=== PATIENT | female | born 1980 | race Caucasian/White ===

== ENCOUNTER 2025-01-19 13:12 | Outpatient (CLI) | payer OTHER, SELFPAY ==
--- OUTSIDE RECORDS SUMMARY | 2022-12-20 04:41 | XMS_ITS | Continuity of Care Document ---
Author Organization [facility] Address [address] [place] [address] Phone Care Team Providers Care Curator [employer] Name Role Phone Kenisha Ramsey MD Unavailable [...] tablet - Active Procedures Procedure Date OFFICE [id number]-[id number]-WUPM-MED BODY MASS INDEX DOCD SYST BP LT 130 MM HG DIAST BP 80-89 MM HG Advance Directives Directive Yes / No Effective Date File Name No Information Encounters Encounter Description Practice Location Reason(s) For Visit Diagnoses Date Provider Providers Copied on Encounter [facility], [address], [place], [place], [address], [place] tel:[phone] [employer] [facility] No Information 3 [address] [place], [place], [id number] , [place]. tel:[phone] OFFICE [id number]-LAB P-MED [facility], [address], [place], [place], [address], [place] tel:[phone] [employer] [facility] New pt. get established visit (chief complaint)Ch ronic Conditions (chief complaint) Body mass index [BMI] 27.0-27.9, adultPersistent headachesOther fatigueUpper back pain on right sideAnxiety, generalizedNeck painChronic insomnia 3 [address] [place], [place], [address] , [place]. tel:[phone] Referring Provider: Kenisha Tierney, [address] [place], [address] . tel:[phone] Family History Family Member Type Diagnosis Age At Onset No Information Immunizations Vaccine Date Status Comments Moderna (Bivalent Booster) C OVID Vac, 50mgc/0.5 mL, 18+ years administered Source: Swapna rce Unspecified Payers Payer name Insurance type Covered constitution party ID Authoriza tion(s) AETNA PPO CI [id number] Social History Type Description Quantity Date Captured [...] side) ordered Referral Referred To: Physical Therapy [address] [place], [phone] Ordered: Referrals: Physical Therapy. Location: [facility] Physical THerapy - [place]. Evaluation/diagnostic/treatment - Level 3 ordered Future Order: Lab Order Ferritin ([id number]), Sent on: Sent Future Order: Lab Order Comprehe nsive Metabolic (CMP) ([id number]), Sent on: Sent Future Order: Lab Order CBC AUTO DIFF ([id number]), Sent on: Sent Future Order: Lab Order Vitamin B12 ([id number]), Sent on: Sent Future Order: Lab Order Iron/TIB C Panel ([id number]), Sent on: Sent Future Order: Lab Order Vitamin D, 25-Hydroxy ([id number]), Sent on: Sent History Of Present Illness Encounter Date Complaint History Of Prese nt Illness New pt. get established visit Pt . here to get established.Has been seeing a PCP at [facility] but feels her PCP is no longer [...] use of IbuprofenStart Physical therapy at [facility] Follow up in 8 weeks Related to Persistent headaches Take the sertraline 100mg once d aily Related to Anxiety, generalized Dietary management e ducation, guidance, and counseling Related to Body mass index (BMI) 27.0-27.9, adult Assessments Type Assessment Date No Information Patient Care Teams Name Effective Dates (start - stop) Status Members No Information
--- OUTSIDE RECORDS SUMMARY | 2023-10-26 16:30 | XMS_ITS ---
Author Organization [facility] [place] ([address]) Address [address] [place] [address] Care Team Providers Care Mining Helper Name Role Phone Lenin Luca Primary Care Provider Unavailab le HeatherLisbeth Unavailable [phone] ZZ-Migration, Provider Unavailable Unavailab le REAS[facility] FOR VISIT [facility] Encounter Medications Medication SIG (Take, Route, Frequency, Duration) Notes Start Date End Date Status Adderall XR 30 MG 1 cap(s) orally once a day (in the morning); Duration: 30 day(s) Active guaiFENesin 600 MG 1 TAB(S) ORALLY BID, PRN; Duration: 5 DAY(S) *Please review and pick correct strength-formulati on from [facility] options. If intended option is not shown, discontinue and re-order from Quick Search* Active Ativan 1 MG 1 tab(s) orally BID, prn; Duration: 0 Active Ventolin HFA 108 (90 Base) MCG/ACT 2 puff(s) inhaled QID, prn; Duration: 30 day(s) Active CeleXA 20 MG 1 tab(s) orally BID; Duration: 30 day(s) Active PATANASE NASAL SPRAY (W/REBATE) 665 MCG 2 SPRAYS INTRANASAL 2 TIMES A DAY, PRN; Duration: 30 DAYS *Please review for potential replacement for e-prescription and drug interaction check* 12/15/2012 Active Singulair 10 MG 1 tab(s) orally once a day (in the evening); Duration: 30 day(s) 12/15/2012 Active NASONEX 50 MCG/INH 2 SPRAY(S) INTRANASALLY ONCE A DAY; Duration: 30 DAY(S) *Please review for potential replacement for e-prescription and drug interaction check* 12/15/2012 Active traZODone HCl 50 MG 1 tab(s) orally QHS; Duration: 30 day(s) Active Fexofenadine HCl 180 MG 1 tab(s) orally QD-BID; Duration: 30 day(s) 12/15/2012 Active NASAL WASHES N/A DIRECTED INTRANASALLY NEEDED; Duration: 30 *Please review for potential replacement for e-prescription and drug interaction check* 12/15/2012 Active Flonase Allergy Relief 50 MCG/ACT 2 spray(s) intranasally once a day; Duration: 30 day(s) 01/05/2013 Active Encounters Encounter Location Date Provider Diagnosis LIZZETH Gibson [address] [place] [phone] 10/26/2023 Provider FabianaZ-Tobi Allergic rhinitis due to allergen 477.8 Assessments Encounter Date Diagnosis (ICD Code) Assessment Notes Treatment Notes Treatment Clinical Notes Section Notes 10/26/2023 Allergic rhinitis due to allergen (ICD9-CM - 477.8) Plan Of Treatment Medication Medication Name Sig Start Date Stop Date Notes PATANASE NASAL SPRAY (W/REBATE) 665 MCG 2 SPRAYS INTRANASAL 2 TIMES A DAY, PRN; Duration: 30 DAYS 12/15/2012 *Please review for potential replacement for e-prescription and drug interaction check* Singulair 10 MG 1 tab(s) orally once a day (in the evening); Duration: 30 day(s) 12/15/2012 NASONEX 50 MCG/INH 2 SPRAY(S) INTRANASALLY ONCE A DAY; Duration: 30 DAY(S) 12/15/2012 *Please review for potential replacement for e-prescription and drug interaction check* Fexofenadine HCl 180 MG 1 tab(s) orally QD-BID; Duration: 30 day(s) 12/15/2012 NASAL WASHES N/A DIRECTED INTRANASALLY NEEDED; Duration: 30 12/15/2012 *Please review for potential replacement for e-prescription and drug interaction check* Flonase Allergy Relief 50 MCG/ACT 2 spray(s) intranasally once a day; Duration: 30 day(s) 01/05/2013 Progress Notes * Suzanne THOMAS RDOB:[birth year] (44 yo F)Acc No.[id number]:10/26/2023 Patient: Suzanne ARMSTRONG Provider: Charbel Britton :1980 A ge:43 Y S ex:Female Date:10/26/2023 Address:[address] [place] [address] Pcp:Luca Phelps Subjective: * Chief Complaints: * [facility] . [facility] * Medical History: * Medications: T aking traZODone HCl 50 MG Tablet 1 tab(s) orally QHS , Taking CeleXA 20 MG Tablet 1 tab(s) orally BID , Taking Ativan 1 MG Tablet 1 tab(s) orally BID, prn , Taking Ventolin HFA 108 (90 Base) MCG/ACT Aerosol Solution 2 puff(s) inhaled QID, prn , Taking guaiFENesin 600 MG TABLET, EXTENDED RELEASE 1 TAB(S) ORALLY BID, PRN , Notes to Pharmacist: *Please review and pick correct strength-formulation from [facility] options. If intended option is not shown, discontinue and re-order from Quick Search*, Taking Fexofenadine HCl 180 MG Tablet 1 tab(s) orally QD-BID , Taking Adderall XR 30 MG Capsule Extended Release 24 Hour 1 cap(s) orally once a day (in the morning) Objective: * Vitals: Assessment: * Assessment: 1. A llergic rhinitis due to allergen - 477.8 (Primary) Plan: * Treatment: 2. O thers Start Flonase Allergy Relief Suspension, 50 MCG/ACT, 2 spray(s), intranasally, once a day, 30 day(s), 1, Refills 3. * Billing Information: * Visit Code: * Procedure Codes: * Electronic signature of Alyson webbr FabianaZ-Migration on 01/19/2025 at 02:37 PM CDT Sign off status: Pending * Provider: Charbel Britton Date: 10/26/2023 Generated for Luis moise/Hui/Jeronimo on: 0 01/19/2025 02:37 PM CDT
--- NOTE | ~2025-01-19 | US_ITS ---
EXAMINATION: US soft tissue UE LT DATE: 01/19/2025 14:04 INDICATION: Localized swelling, mass or lump at the posterior left shoulder TECHNIQUE: Multiple grayscale and Doppler ultrasound images of the region of concern at the posterior left shoulder were obtained. COMPARISON: None FINDINGS: There is a 3.1 x 3.8 x 0.8 cm lenticular mass in the subcutaneous tissues at the region of concern which is isoechoic and with identical echotexture and internal septated architecture as the surrounding subcutaneous fat is consistent with a lipoma. IMPRESSION: 1. 3.8 x 3.1 x 0.8 cm subcutaneous mass at the region of concern with appearance most consistent with and statistically most likely to represent a lipoma. Reviewed, dictated and finalized at location A. IMPRESSION: 1. 3.8 x 3.1 x 0.8 cm subcutaneous mass at the region of concern with appearanc e most consistent with and statistically most likely to represent a lipoma.
--- OUTSIDE RECORDS SUMMARY | 2025-01-19 14:37 | XMS_ITS | Clinical Summary ---
Author Organization [facility] Address [address] [place] [address] Care Team Providers Care Extractions Technologist Name Role Phone Luca Phelps MD Primary Care Provider Source Comments [facility],non-owned Affiliates and Associated Physician Practices is amultiple site organization consisting of ambulatory clinics and hospital sitesin [place], [place], [place] and [place]. This disclosure is being madepursuant to the Care Everywhere program and may not contain all information available regarding this patient. Last updated 18.[facility] Allergies No known active allergies Medications * Be aware that medications may not be up to date on this document. Alwaysverify current medications with the patient. Drospirenone-Et hinyl Estradiol (CHASTITY PO) Active traZODone (DESYREL) 50 MG tablet Take 50 mg by mouth at bedtime Active Family History Medical History Relation Name Comments Asthma Neg Hx Autoimmune Disease Neg Hx Bipolar Disorder Neg Hx Cancer - Breast Neg Hx Cancer - Colon Neg Hx Cancer - Other Neg Hx Cancer - Ovarian Neg Hx Cancer - Pancreatic Neg Hx Cancer - Prostate Neg Hx Depression Neg Hx Eczema Neg Hx Hypertension Neg Hx Migraine Neg Hx Osteoporosis Neg Hx Seizures Neg Hx Sudd. <30 Neg Hx Thyroid Disease Neg Hx Ulcerative Colitis Neg Hx Relation Name Status Comments Father Mother Alive Social History Tobacco Use Types Packs/Day Years Used Date Smoking Tobacco: Never Smokeless Tobacco: Never Tobacco Cessation:Counseling Given: No Alcohol Use Standard Drinks/Week Comments No 0 (1 standard drink = 0.6 oz pur e alcohol) Comments No Sex and Gender Information Value Date Recorded Sex Assigned at Not on file Legal Sex Female 6:17 PM 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 Gender Identity Not on file Sexual Orientation Not on file Last Filed Vital Signs Vital Sign Reading Time Taken Comments Blood Pressure 118/70 04/30/2018 6:03 PM 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 Pulse 81 04/30/2018 6:03 PM 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 Temperature 37.2 C (99 F) 04/30/2018 6:03 PM 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 Respiratory Rate 16 04/30/2018 6:03 PM 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 Oxygen Saturation 97% 06/10/2017 4:31 PM 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 Inhaled Oxygen Concentration - - Weight 59 kg (130 lb) 04/30/2018 6:03 PM 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 Height 167.6 cm (5' 6) 04/30/2018 6:03 PM 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 Body Mass Index 20.98 04/30/2018 6:03 PM 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 Plan of Treatment Health Maintenance Due Date Last Done Comments COLOGUARD (AGES 45-75) - COL ON CA SCREENING 1979 COLON MONITORING 1979 COLONOSCOPY - COLON CA SCREENING 1979 CT COLONOGRAPHY - COLON CA SCREENING 1979 Colorectal Cancer Screening 1979 FIT - COLON CA SCREENING 1979 FLEX SIG - COLON CA SCREENING 1979 LIPID TESTING 1979 MAMMOGRAM 1979 HIV SCREENING 1994 HEPATITIS C SCREENING 01/25/1997 DTAP/TDAP/TD VACCINES (1 - Tdap) 1998 HEPATITIS B VACCINE (1 of 3 - 19+ 3-dose series) 1998 HPV VACCINE (1 - 3-dose SCDM series) 2006 DEPRESSION SCREENING 05/13/2024 COVID-19 VACCINE (1 - 2023-2 5 season) 2025 INFLUENZA VACCINE (#1) 2025 ZOSTER VACCINE (1 of 2) 2029 HIB VACCINE Aged Out No longer eligi ble based on patient's age to complete this topic MENINGOCOCCAL (Group B) VACC INE SHARED DECISION-MAKING Aged Out No longer eligibl e based on patient's age to complete this topic MENINGOCOCCAL GROUPS A/C/Y/W VACCINE Aged Out No longer eligible b ased on patient's age to complete this topic PNEUMOCOCCAL VACCINE Aged Out No long er eligible based on patient's age to complete this topic Insurance AETNA Care Teams Extractions Technologist Relationship Specialty [place] [address] [place] [address]. [address] [place] [address] PCP - General Family Medicine 06/10/17
--- OUTSIDE RECORDS SUMMARY | 2025-01-19 14:37 | XMS_ITS | Clinical Summary ---
Author Organization [facility] Address [address] [place] [phone] Care Team Providers Care Director Of Graduate Medical Education Name Role Phone Luca Phelps MD Primary Care Provider [phone] Allergies Active Allergy Reactions Criticality Noted Date Comments Codeine Itching,Nausea only Low 08/11/2024 Medications ubrogepant (Ubrelvy) 50 mg tablet TAKE 1 TABLET BY MOUTH TWICE A DAY NEEDED FOR MIGRAINE. MAX 2 TABS/24HOURS 03/13/20 22 Active tiZANidine (ZANAFLEX) 4 mg tablet Take 1 tablet (4 mg total) by mouth every 6 (six) hours as needed 07/14/19 24 Active sertraline (ZOLOFT) 50 mg tablet Take 1 tablet (50 mg total) by mouth daily 04/27/20 23 Active rOPINIRole (REQUIP) 1 mg tablet Take 1 tablet (1 mg total) by mouth nightly 11/10/19 23 Active ondansetron ODT (ZOFRAN-ODT) 4 mg disintegrating tablet Take by mouth every 8 (eight) hours as needed 02/21/20 23 Active lisinopriL (PRINIVIL,ZESTRIL) 10 mg tablet Take 1 tablet (10 mg total) by mouth daily Active hydrOXYzine (ATARAX) 25 mg tablet TAKE 1 TABLET BY MOUTH 3 TIMES DAILY NEEDED FOR ITCHING. 01/30/20 23 Active drospirenone-ethin yl estradioL (CHASTITY,GIANVI) 3-0.02 mg per tablet Take 1 tablet by mouth daily 07/12/19 17 Active clonazePAM (KlonoPIN) 0.5 mg tablet Take 1 tablet (0.5 mg total) by mouth 2 (two) times a day 07/04/19 24 Active amLODIPine (NORVASC) 5 mg tablet Take 1 tablet (5 mg total) by mouth daily 05/26/19 24 Active amitriptyline (ELAVIL) 50 mg tablet Take 1 tablet (50 mg total) by mouth nightly Active albuterol HFA (PROVENTIL HFA,VENTOLIN HFA,PROAIR HFA) 90 mcg/actuation inhaler Active naloxone (NARCAN) 4 mg/actuation spray,non-aerosol Administer 1 spray into affected nostril(s) as needed for opioid reversal or respiratory depression Call 911. Administer a single spray in one nostril. Repeat every 3 minutes as needed if no or minimal response. 1 each 08/12/19 25 Active traMADoL (ULTRAM) 50 mg tabletIndications: Closed fracture of proximal end of right tibia, unspecified fracture morphology, initial encounter Take 1 tablet (50 mg total) by mouth every 6 (six) hours as needed for pain for up to 14 days for pain 40 tablet 09/11/19 25 Active Active Problems Problem Noted Date Diagnosed Date Fracture treatment convalescence or palliative c are 09/24/2024 Closed fracture of right proximal tibia 09/09/19 25 Right ankle pain 09/08/2024 Closed fracture of right ankle 09/08/2024 Pain of right eye 09/14/2023 ERRONEOUS ENCOUNTER--DISREGARD 09/14/2023 Encounters Date Type Department Care Team Description 11/05/2024 11:00 AM CDT Office Visit [facility] [address] [place] [address] [place] [phone] Luca Matias PA Closed fracture of proximal end of right tibia with routine healing, unspecified fracture morphology, subsequent encounter (Primary Dx); Closed fracture of right ankle with routine healing, subsequent encounter; Fracture treatment convalescence or palliative care; Right ankle pain, unspecified chronicity 11/05/2024 10:46 AM CDT - 11/05/2024 11:59 PM CDT Hospital Encounter [facility] [address] [place] [id number] Closed fracture of proximal end of right tibia, unspecified fracture morphology, initial encounter; Closed fracture of right ankle with routine healing, subsequent encounter Discharge Disposition: Discharge to home or self care from Last 3 Months Surgical History Surgery Date Site/Laterality Comments SECTION Medical History Medical History Date Comments Raynaud disease Headache Social History Tobacco Use Types Packs/Day Years Used Date Smoking Tobacco: Former Cigarettes Smokeless Tobacco: Never Tobacco Cessation:Counseling Given: Not Answered Personal Safety Answer Date Recorded Have you ever been in or are you currently in a harmful physical or emotional relationship or is someone making you feel afraid or unsafe? Denies 08/08/2024 Comments Unknown Sex and Gender Information Value Date Recorded Sex Assigned at Not on file Legal Sex Female 7:36 AM [employer] Gender Identity Not on file Sexual Orientation Not on file Obstetrics History Last Filed Vital Signs Vital Sign Reading Time Taken Comments Blood Pressure 126/77 08/08/2024 2:47 PM CDT Pulse 99 08/08/2024 2:47 PM CDT Temperature 37.1 C (98.8 F) 08/08/2024 2:47 PM CDT Respiratory Rate 17 08/08/2024 2:47 PM CDT Oxygen Saturation 100% 08/08/2024 2:47 PM CDT Inhaled Oxygen Concentration - - Weight 63.5 kg (140 lb) 11/05/2024 10:54 AM CDT Height 167.6 cm (5' 6) 11/05/2024 10:54 AM CDT Body Mass Index 22.6 11/05/2024 10:54 AM CDT Plan of Treatment Health Maintenance Due Date Last Done Comments Breast Cancer Screening-Mammogram 1979 Cervical Cancer Screening 1979 Colon Cancer Screening-Colonoscopy 1979 Depression Screening 1979 Hepatitis C Screening 1979 DTaP/Tdap/Td Vaccine (1 - Tdap) 1990 Hepatitis B Screening 1997 Regular Well Visit/Exam 18-64 1997 Pneumococcal vaccine <65 (1 of 2 - PCV) 1998 HPV Vaccines (1 - 3-dose SCDM series) 2006 Covid-19 Vaccine (3 - season) 01/12/202409/2020, 09/17/2020 Influenza Vaccine (#1) 2025 , 02/14/2020, 02/14/2016 Procedures Procedure Name Priority Date/Time Associated Diagnosis Comments XR ANKLE RIGHT 3 OR MORE VIEWS Schedule Routine, Read Routine (OP Routine) 11/05/2024 10:52 AM CDT Closed fracture of right ankle with routine healing, subsequent encounter XR TIBIA FIBULA RIGHT2 VIEWS Schedule Routine, Read Routine (OP Routine) 11/05/2024 10:52 AM CDT Closed fracture of proximal end of right tibia, unspecified fracture morphology, initial encounter from Last 3 Months Results * XR Ankle Right 3+ Vw (11/05/2024 10:52 AM CDT) Anatomical Region Laterality Modality Lower Extremities, Ankle Right Compute d Radiography 11/06/2024 12:3 6 PM CDT Narrative 11/06/2024 12:40 PM CDT EXAM DESCRIPTION: 1. XR TIBIA FIBULA RIGHT2 VIEWS; 2. XR ANKLE RIGHT 3 OR MORE VIEWS REASON FOR STUDY: PAIN Lateral knee pain since fall/fx 08-06-24 ; PAIN Mild general ankle pain since fall 08-06-24 FINDINGS: Two views right leg and three views right ankle submitted with comparison 09/24/2024. Healing spiral fracture of the proximal fibula. Tibia and fibular alignment is unchanged. Healing nondisplaced posterior malleolus fracture. The ankle joint space and mortise are normal. No effusion. Small heel spur. IMPRESSION: 1. Healing spiral fracture of the proximal right fibula. 2. Healing right posterior malleolus fracture. THIS IS AN ELECTRONICALLY VERIFIED FINAL REPORT 11/06/2024 12:40 PM - Electronically signed by Anjel Lozada M.D. T: Report ID: [id number] Reading Location: [id number] Procedure Note Anjel Lozada MD - 11/06/2024 EXAM DESCRIPTION: 1. XR TIBIA FIBULA RIGHT2 VIEWS; 2. XR ANKLE RIGHT 3 OR MORE VIEWS REASON FOR STUDY: PAIN Lateral knee pain since fall/fx 08-06-24 ; PAIN Mild general ankle pain since fall 08-06-24 FINDINGS: Two views right leg and three views right ankle submitted with comparison 09/24/2024. Healing spiral fracture of the proximal fibula. Tibia and fibularalignment is unchanged. Healing nondisplaced posterior malleolus fracture. Theankle joint space and mortise are normal. No effusion. Small heel spur. IMPRESSION: 1. Healing spiral fracture of the proximal right fibula. 2. Healing right posterior malleolus fracture. THIS IS AN ELECTRONICALLY VERIFIED FINAL REPORT 11/06/2024 12:40 PM - Electronically signed by Anjel Lozada M.D. T: Report ID: [id number] Reading Location: [place] [address] Luca KENT IMG XR PROCEDURES Fin al Result * XR Tibia Fibula Right 2 View (11/05/2024 10:52 AM CDT) Anatomical Region Laterality Modality Lower Extremities, Lower Leg Right Com puted Radiography 11/06/2024 12:3 6 PM CDT Narrative 11/06/2024 12:40 PM CDT EXAM DESCRIPTION: 1. XR TIBIA FIBULA RIGHT2 VIEWS; 2. XR ANKLE RIGHT 3 OR MORE VIEWS REASON FOR STUDY: PAIN Lateral knee pain since fall/fx 08-06-24 ; PAIN Mild general ankle pain since fall 08-06-24 FINDINGS: Two views right leg and three views right ankle submitted with comparison 09/24/2024. Healing spiral fracture of the proximal fibula. Tibia and fibular alignment is unchanged. Healing nondisplaced posterior malleolus fracture. The ankle joint space and mortise are normal. No effusion. Small heel spur. IMPRESSION: 1. Healing spiral fracture of the proximal right fibula. 2. Healing right posterior malleolus fracture. THIS IS AN ELECTRONICALLY VERIFIED FINAL REPORT 11/06/2024 12:40 PM - Electronically signed by Anjel Lozada M.D. T: Report ID: [id number] Reading Location: [place] [address] Procedure Note Anjel Lozada MD - 11/06/2024 EXAM DESCRIPTION: 1. XR TIBIA FIBULA RIGHT2 VIEWS; 2. XR ANKLE RIGHT 3 OR MORE VIEWS REASON FOR STUDY: PAIN Lateral knee pain since fall/fx 08-06-24 ; PAIN Mild general ankle pain since fall 08-06-24 FINDINGS: Two views right leg and three views right ankle submitted with comparison 09/24/2024. Healing spiral fracture of the proximal fibula. Tibia and fibularalignment is unchanged. Healing nondisplaced posterior malleolus fracture. Theankle joint space and mortise are normal. No effusion. Small heel spur. IMPRESSION: 1. Healing spiral fracture of the proximal right fibula. 2. Healing right posterior malleolus fracture. THIS IS AN ELECTRONICALLY VERIFIED FINAL REPORT 11/06/2024 12:40 PM - Electronically signed by Anjel Lozada M.D. T: Report ID: [id number] Reading Location: [place] [address] Luca KENT IMG XR PROCEDURES Fin al Result from Last 3 Months Insurance IDPA Care Teams Director Of Graduate Medical Education Relationship Specialty Start Date End Date Luca Phelps MD [address] [facility] [address] [place] [address] PCP - General Family Medicine 07/19/23
--- OUTSIDE RECORDS SUMMARY | 2025-01-19 14:37 | XMS_ITS | Encounter Summary ---
Author Organization [facility] Address [address] [place] [id number] Care Team Providers Care Crane Ladle Person Name Role Phone Luca Phelps MD Primary Care Provider Encounter Details Date Type Department Care Team (Late st Contact Info) Description 11/07/2022 MyChart Message Enc [facility] [address] [place] [address] Mychart, [facility] Provider Air Quality Message Social History Tobacco Use Types Packs/Day Years Used Date Smoking Tobacco: Former Smokeless Tobacco: Never Comments:physican will discu ss if necessary Alcohol Use Standard Drinks/Week Comments Yes 0 (1 standard drink = 0.6 oz pur e alcohol) PHQ-2 Answer Date Recorded PHQ-2 Score - If the patient scores above 3, please move on to questions 3-9 1 03/14/2022 Comments No Sex and Gender Information Value Date Recorded Sex Assigned at Not on file Legal Sex Female 7:51 PM CDT Gender Identity Not on file Sexual Orientation Not on file documented as of this encounter Plan of Treatment Not on file documented as of this encounter Visit Diagnoses Not on filedocumented in this encounter Additional Health Concerns Assessment Noted Time PHQ-9 Depression Total Score: 11 022 7:56 AM CDT documented as of this encounter Care Teams Crane Ladle Person Relationship Specialty Start Date End Date Luca Phelps MD [address] [place] [address] PCP - General FAMILY PRACTICE 05/19/18 documented as of this encounter
--- OUTSIDE RECORDS SUMMARY | 2025-01-19 14:38 | XMS_ITS | Patient Health Record ---
Author Organization [facility] ([address]) Address [address] [place] [address] Care Team Providers Care Internal Salesperson Name Role Phone Luca Phelps Primary Care Provider Unavailab mayo Lisbeth Romero Unavailable [phone] Reason For Referral No Information Medications Medication SIG (Take, Route, Frequency, Duration) Notes Start Date End Date Status PATANASE NASAL SPRAY (W/REBATE) 665 MCG 2 SPRAYS INTRANASAL 2 TIMES A DAY, PRN; Duration: 30 DAYS *Please review for potential replacement for e-prescription and drug interaction check* 12/15/2012 Active Singulair 10 MG 1 tab(s) orally once a day (in the evening); Duration: 30 day(s) 12/15/2012 Active NASAL WASHES N/A DIRECTED INTRANASALLY NEEDED; Duration: 30 *Please review for potential replacement for e-prescription and drug interaction check* 12/15/2012 Active Adderall XR 30 MG 1 cap(s) orally once a day (in the morning); Duration: 30 day(s) Active NASONEX 50 MCG/INH 2 SPRAY(S) INTRANASALLY ONCE A DAY; Duration: 30 DAY(S) *Please review for potential replacement for e-prescription and drug interaction check* 12/15/2012 Active TRAZODONE 50 mg 1 tab(s) orally QHS; Duration: 30 day(s) Active SINGULAIR 10 mg 1 tab(s) orally once a day (in the evening); Duration: 30 day(s) 12/15/2012 Active CELEXA 20 mg 1 tab(s) orally BID; Duration: 30 day(s) Active FEXOFENADINE HYDROCHLORIDE 180 mg 1 tab(s) orally QD-BID; Duration: 30 day(s) 12/15/2012 Active ATIVAN 1 mg 1 tab(s) orally BID, prn; Duration: 0 Active VENTOLIN HFA CFC free 90 mcg/inh 2 puff(s) inhaled QID, prn; Duration: 30 day(s) Active FLONASE 50 mcg/inh 2 spray(s) intranasally once a day; Duration: 30 day(s) 01/05/2013 Active GUAIFENESIN 600 mg 1 tab(s) orally BID, prn; Duration: 5 day(s) Active FEXOFENADINE 180 mg 1 tab(s) orally QD-BID; Duration: 30 day(s) Active ADDERALL XR 30 mg 1 cap(s) orally once a day (in the morning); Duration: 30 day(s) Active Flonase Allergy Relief 50 MCG/ACT 2 spray(s) intranasally once a day; Duration: 30 day(s) 01/05/2013 Active guaiFENesin 600 MG 1 TAB(S) ORALLY BID, PRN; Duration: 5 DAY(S) *Please review and pick correct strength-formulati on from [employer] options. If intended option is not shown, discontinue and re-order from Quick Search* Active Ativan 1 MG 1 tab(s) orally BID, prn; Duration: 0 Active Ventolin HFA 108 (90 Base) MCG/ACT 2 puff(s) inhaled QID, prn; Duration: 30 day(s) Active traZODone HCl 50 MG 1 tab(s) orally QHS; Duration: 30 day(s) Active CeleXA 20 MG 1 tab(s) orally BID; Duration: 30 day(s) Active Fexofenadine HCl 180 MG 1 tab(s) orally QD-BID; Duration: 30 day(s) 12/15/2012 Active Immunizations Vaccine Route Administration Date Status Comme nts NOC Influenza-Fluzone Unknown 05/17/2012 Administered Problems Problem Type SNOMED Code ICD Code Onset Dates Problem Status W/U Status Risk Notes Problem Chronic allergic conjunctivitis (79274308) Chronic allergic conjunctivitis NOS (372.14) Active confirmed Problem Allergic rhinitis due to allergen (05778090) Allergic rhinitis due to allergen (477.8) Active confirmed Problem Shortness of breath (758694660) Shortness of breath (786.05) Active confirmed Plan Of Treatment No Information Insurance Providers Payer Name Payer Address Payer Phone Subscriber Number Group Number Insured Name Patient Relationship to Insured Coverage Start Date Coverage End Date [facility] [id number] [place] [address] [id number] Suzanne Keith Self - patient is the insured Medical (General) History Medical History History ICD Code Allergic rhinitis and conjunctivitis - p ositive ST ?2006 (Dr. Garcia) Episodic inspiratory dyspnea Sleep disorder Anxiety disorder Chronic sinusitis Tendonitis Muscle spasms Surgical History Surgery Date(Month/Year) Rhinoplasty 2006
--- OUTSIDE RECORDS SUMMARY | 2025-01-19 14:38 | XMS_ITS | Clinical Summary ---
Author Organization [facility] Address [address] [place] [address] Care Team Providers Care Filling Station Laborer Name Role Phone Luca Phelps MD Primary Care Provider Allergies Active Allergy Reactions Criticality Noted Date Comments Codeine Itching,Nausea Only Low 08/11/2024 Medications rOPINIRole (REQUIP) 1 MG tabletIndications: Restless leg syndrome Take 1 tablet (1 mg total) by mouth nightly. 90 tablet 3 3 Active albuterol sulfate HFA 108 (90 Base) MCG/ACT inhalerIndications :Mild intermittent asthma without complication (HHS/HCC) Inhale 2 puffs into the lungs every 6 (six) hours as needed for Wheezing. 18 g 3 3 Active lisinopril (PRINIVIL) 10 MG tabletIndications: Bilateral lower extremity edema Take 1 tablet (10 mg total) by mouth daily. 90 tablet 3 4 Active ubrogepant (UBRELVY) 50 MG tabletIndications: Chronic migraine without aura without status migrainosus, not intractable Take 1 tablet (50 mg total) by mouth 2 (two) times daily as needed for Migraine. Max of 2 tablets (100 mg) in 24 hours 18 tablet 11 4 Active hydrOXYzine (ATARAX) 25 MG tabletIndications: Anxiety Take 1 tablet (25 mg total) by mouth every 8 (eight) hours as needed for Itching. 30 tablet 3 4 Active ondansetron (ZOFRAN-ODT) 4 MG disintegrating tabletIndications: Nausea Take 1 tablet (4 mg total) by mouth every 8 (eight) hours as needed. FOR NAUSEA 18 tablet 1 4 Active amitriptyline (ELAVIL) 50 MG tabletIndications: Lumbar radiculopathy,Prim gabriela insomnia Take 1 tablet (50 mg total) by mouth nightly at bedtime. at bedtime 90 tablet 3 4 Active traZODone (DESYREL) 100 MG tabletIndications: Primary insomnia Take 1 tablet (100 mg total) by mouth nightly at bedtime. 90 tablet 3 4 Active amLODIPine (NORVASC) 5 MG tabletIndications: Raynaud's phenomenon without gangrene TAKE ONE TABLET BY MOUTH EVERY DAY 90 tablet 3 5 Active sertraline (ZOLOFT) 100 MG tabletIndications: Anxiety Take 2 tablets (200 mg total) by mouth daily. 180 tablet 3 5 Active tiZANidine (ZANAFLEX) 4 MG tabletIndications: Acute non intractable tension-type headache TAKE ONE TABLET BY MOUTH EVERY 6 HOURS NEEDED 30 tablet 2 5 Active clonazePAM (KLONOPIN) 0.5 MG tabletIndications: Anxiety Take 1 tablet (0.5 mg total) by mouth 2 (two) times daily. 20 tablet 1 5 Active lisdexamfetamine (VYVANSE) 10 MG capsuleIndications :ADHD (attention deficit hyperactivity disorder), combined type Take 1 capsule (10 mg total) by mouth every morning. 30 capsule 5 Active lisdexamfetamine (VYVANSE) 10 MG capsuleIndications :ADHD (attention deficit hyperactivity disorder), combined type Take 1 capsule (10 mg total) by mouth every morning. 30 capsule 5 12/24/19 25 Discontin ued(Reord er) Active Problems Problem Noted Date Diagnosed Date Vitamin B12 deficiency 12/04/2024 Lipoma of right upper extremity 12/04/2024 Bilateral lower extremity edema 05/03/2022 Raynaud's phenomenon without gangrene 05/03/2022 Elevated BP without diagnosis of hypertension Overweight with body mass in dex (BMI) of 28 to 28.9 in adult 03/13/2022 Lumbar radiculopathy 02/24/2021 Restless leg syndrome 02/24/2021 Contraception management 07/11/2016 Trigger point of shoulder region 04/24/2016 Migraine 03/30/2016 Tension type headache 03/30/2016 ADHD (attention deficit hype ractivity disorder), combined type 12/03/2012 Allergic rhinitis 12/03/2012 Anxiety 12/03/2012 Primary insomnia 12/03/2012 Asthma ([facility]) 11/26/2012 Impingement syndrome of shoulder 02/04/2012 Resolved Problems Problem Noted Date Diagnosed Date Resolved Date Closed fracture of right ankle 09/08/2024 11/25/2024 Closed fracture of right proximal tibia 09/08/2024 11/25/2024 Acute cystitis 08/02/2017 05/19/2018 Painful urging to urinate 07/29/2017 Acute bronchitis 06/13/2017 05/19/2018 Candidiasis of vulva and vagina 02/28/2016 11/25/2024 Overview (11/25/2024): Candidiasis of vulva and vagina; Progress: Stable Added By: Pearl Morrison Add to Current Problems: NO ProblemStatus: Resolve Pupillary dilation 07/17/2013 2 Gu splint 07/17/2013 04/16/2022 Encounter for preventive health examination 02/04/2012 01/22/2020 Encounters Date Type Department Care Team Description 01/04/2025 Scan Prieto Battery INFO SRVCS Scanned, [facility] 12/08/2024 Telephone [facility] [address], [address] [place] [phone] Luca Phelps MD Results 12/04/2024 7:40 AM CDT Office Visit [facility] [address], [address] [place] [phone] Luca Phelps MD Lab Results (Wants to discuss lab findings from an wheel truing machine tender. /); Urinary Frequency (Does not think it is a UTI. /When the urgency comes she has to go right then and there. She feels like she could urinate on herself. Happens often); Shoulder Pain (Right lipoma shoulder, getting bigger) 12/04/2024 Results Follow-Up [facility] [address], [address] [place] [phone] Luca Phelps MD URINALYSIS AUTO DIP, CBC, AUTO, NO DIFF, BASIC METABOLIC PANEL 12/04/2024 Telephone [facility] [address], [address] [place] [phone] Luca Phelps MD Prior Authorization 12/04/2024 Travel 11/25/2024 7:20 AM CDT Office Visit [facility] [address], [address] [place] [phone] Luca Phelps MD Follow Up (Medication follow up) 11/25/2024 Travel from Last 3 Months Immunizations Immunization Administration Dates Next Due Flucelvax 6 Months+ (Prefilled Syringe) 02/14/20 20 Hepatitis A Vaccine - 3 Dose 03/25/2000 Influenza (Generic) 02/17/2024 Influenza Adult (Generic) 02/14/2016 MODERNA COVID-19 (12+) MRNA, LNP-S, PF, 100 MCG/ 0.5 ML DOSE 10/15/2020,09/17/2020 Family History Medical History Relation Comments Diabetes Maternal Grandmother Diabetes Paternal Grandfather Stroke Paternal Grandfather Relation Status Comments Father Alive Maternal Grandmother Alive Mother Alive Paternal Grandfather Alive Social History Tobacco Use Types Packs/Day Years Used Date Smoking Tobacco: Former Passive Smoke Exposure: Never Smokeless Tobacco: Never Tobacco Cessation:Counseling Given: No Comments:physican will discuss if necessary Alcohol Use Standard Drinks/Week Comments Yes 0 (1 standard drink = 0.6 oz pur e alcohol) PHQ-2 Answer Date Recorded Patient Health Questionnaire-2 Score 0 12/04/2024 Comments No Sex and Gender Information Value Date Recorded Sex Assigned at Not on file Legal Sex Female 7:51 PM CDT Gender Identity Not on file Sexual Orientation Not on file Last Filed Vital Signs Vital Sign Reading Time Taken Comments Blood Pressure 124/82 12/04/2024 7:43 AM CDT Pulse 93 12/04/2024 7:43 AM CDT Temperature 36.5 C (97.7 F) 12/04/2024 7:43 AM CDT Respiratory Rate 15 12/04/2024 7:43 AM CDT Oxygen Saturation 97% 12/04/2024 7:43 AM CDT Inhaled Oxygen Concentration - - Weight 67.3 kg (148 lb 6.4 oz) 12/04/2024 7:43 A M CDT Height 167.6 cm (5' 5.98) 12/04/2024 7:43 AM CD T Body Mass Index 23.96 12/04/2024 7:43 AM CDT Plan of Treatment Health Maintenance Due Date Last Done Comments Cervical Cancer Screening Pa p Smear (Age 30 to 64) Every 3 Years 1979 Colorectal Cancer Screening Colonoscopy (10 Years) 1979 Hepatitis C 1997 DTaP, Tdap and Td Vaccines ( 1 - Tdap) 1998 Hepatitis B Vaccines (1 of 3 - 19+ 3-dose series) 1998 Pneumococcal Vaccine: Pediatrics (0 to 5 Years) and At-Risk Patients (6 to 49 Years) (1 of 2 - PCV) 1998 HPV Vaccines (1 - 3-dose SCD M series) 2006 Cervical Cancer Screening Pa p with HPV Testing (Age 30 to 64) Every 5 Years 2009 Cervical Cancer Screening wi th HPV 2009 Mammogram Screening 2019 Annual Physical 05/03/2021 05/03/2020 COVID-19 Vaccine (3 - 2024-2 6 season) 2025 10/15/2020, 09/17/2020 PHQ-2 (Physician [place]) Completed 12/04/2024 Meningococcal B Vaccine Aged Out No l onger eligible based on patient's age to complete this topic Meningococcal Vaccine Aged Out No catie luz marina eligible based on patient's age to complete this topic RSV Immunizations Under 20 Months Aged Out No longer eligible b ased on patient's age to complete this topic Procedures Procedure Name Priority Date/Time Associated Diagnosis Comments BASIC METABOLIC PANEL Routine 12/26/2024 1:25 PM CDT CBC, AUTO, NO DIFF Routine 12/26/2024 1: 25 PM CDT Vitamin B12 deficiency URINALYSIS AUTO DIP Routine 12/04/2024 8 :45 AM CDT Dysuria Urinary urgency from Last 3 Months Results * (ABNORMAL) BASIC METABOLIC PANEL (12/26/2024 1:25 PM CDT) GLUCOSE 123(H) 65 - 99 mg/dL [facility] Comment: Fasting reference interval For someone without known diabetes, a glucose value between 100 and 125 mg/dL is consistent with prediabetes and should be confirmed with a follow-up test. BUN 16 7 - 25 mg/dL [facility] CREATININE S/P/B 0.83 0.50 - 0.99 mg/dL [facility] GFR ESTIMATE 89 > OR = 60 mL/min/1. 73m2 [facility] BUN CREATININE RATIO SEE NOTE: (calc) [facility] Comment: Not Reported: BUN and Creatinine are within reference range. SODIUM S/P/B 138 135 - 146 mmol/L [facility] POTASSIUM S/P/B 4.1 3.5 - 5.3 mmol/L [facility] CHLORIDE S/P/B 103 98 - 110 mmol/L [facility] CO2 25 20 - 32 mmol/L [facility] CALCIUM S/P/B 9.8 8.6 - 10.2 mg/dL [facility] 12/26/2024 1:25 PM CDT 12/26/2024 1:27 PM CDT Narrative [facility] - 12/27/2024 10:26 AM CDT FASTING:UNKNOWN FASTING: UNKNOWN Resulting Agency Comment Performing Organization Information: Site ID: [id number] Name: [facility] Address: [address] [id number] Director: Joanna Ang MD us Luca Phelps MD LABORATORY Final R esult [facility] [employer] [facility] [address] [address] [id number], * CBC, AUTO, NO DIFF (12/26/2024 1:25 PM CDT) Pathologist [facility] WBC 7.3 3.8 - 10.8 Thousand/u L [facility] RBC 4.36 3.80 - 5.10 Million/uL [facility] HGB 14.4 11.7 - 15.5 g/dL [facility] HCT 43.5 35.0 - 45.0 % [facility] MCV 99.8 80.0 - 100.0 fL [facility] MCH 33.0 27.0 - 33.0 pg [facility] MCHC 33.1 32.0 - 36.0 g/dL [facility] Comment: For adults, a slight decrease in the calculated MCHC value (in the range of 30 to 32 g/dL) is most likely not clinically significant; however, it should be interpreted with caution in correlation with other red cell parameters and the patient's clinical condition. RDW 12.1 11.0 - 15.0 % [facility] PLT 292 140 - 400 Thousand/u L [facility] MPV 10.4 7.5 - 12.5 fL [facility] 12/26/2024 1:25 PM CDT 12/26/2024 1:27 PM CDT Narrative [facility] - 12/27/2024 10:26 AM CDT FASTING:UNKNOWN FASTING: UNKNOWN Resulting Agency Comment Performing Organization Information: Site ID: [id number] Name: [facility] Address: [address] [place] [id number] Director: Joanna Ang MD us Luca Phelps MD LABORATORY Final R esult [facility] [id number] [place] [id number], SV * (ABNORMAL) URINALYSIS AUTO DIP (12/04/2024 8:45 AM CDT) Pathologist [facility] COLOR (U) YELLOW YELLOW [facility] [place] [place] TRANSPARENCY TURBID(A) CLEAR [facility] [place] [place] GLUCOSE (U) NEGATIVE NEGATIVE MG/DL [facility] [place] [place] BILIRUBIN (U) NEGATIVE NEGATIVE [facility] [place] [place] KETONES MG/DL (U) NEGATIVE NEGATIVE MG/DL [facility] [place] SPECIFIC GRAVITY (U) 1.015 1.001 - 1.035 [facility] [place] [place] BLOOD (U) MODERATE (Non Hemolyzed, Intact, About 50 rbc/uL)(A) NEGATIVE [facility] [place] [place] U PH 7.5 5.0 - 9.0 [facility] [place] [place] PROTEIN (U) NEGATIVE NEGATIVE mg/dL [facility] [place] [place] UROBILINOGEN 0.2 0.2 - 1.0 EU/dL = mg/dL [facility] [place] [place] NITRITES NEGATIVE NEGATIVE MG/DL [facility] [place] [place] LEUKOCYTES (U) NEGATIVE NEGATIVE [facility] [place] [place] [place] URINE SPECIMEN OBTAINED BY CLEAN CATCH PROCEDURE / Unknown 12/04/2024 8:45 AM CDT Luca Phelps MD URINE ORDERABLES Final Result Performing Organization Address City/State/[facility] Co de Phone Number [facility] [place] [place] [address] [place] [address], from Last 3 Months Insurance [employer] Care Teams Filling Station Laborer Relationship Specialty Start Date End Date Luca Phelps MD [address] [phone] PCP - General FAMILY PRACTICE 05/19/18
--- OUTSIDE RECORDS SUMMARY | 2025-01-19 14:38 | XMS_ITS | Clinical Summary ---
Author Organization [facility] Care Team Providers Care Development Scientist Name Role Phone Unavailable Primary Care Provider Unavailabl e Social History Tobacco Use Types Packs/Day Years Used Date Smoking Tobacco: Never Assessed Comments Unknown Sex and Gender Information Value Date Recorded Sex Assigned at Not on file Legal Sex Female 3:40 PM CDT Gender Identity Not on file Sexual Orientation Not on file Plan of Treatment Health Maintenance Due Date Last Done Comments Hepatitis C Virus (HCV) Screening 1979 TdaP Immunization 1979 Hepatitis B Immunization (1 of 3 - 19+ 3-dose series) 1998 Pap Smear 01/31/2000 Human Papillomavirus (HPV) Immunization (1 - 3-dose SCDM series) 2006 Cervical Cancer Screening (CCS) 2009 HPV/Cotest 2009 SARS-COV-2 Immunization (2023- season) 2024 Cologuard 01/31/2024 Colonoscopy 01/31/2024 Colorectal Cancer Screening 01/31/2024 Immunochemical Fecal Occult Blood 01/31/2024 Influenza Immunization (#1) 01/11/202508/2019, 02/14/2016 Respiratory Syncytial Virus (RSV) Immunization (Adult) (1 - 1-dose 75+ series) 2054 Meningococcal Immunization (ACWY) Aged Out No longer eligible b ased on patient's age to complete this topic Pneumococcal Immunization Combined Aged Out No longer eligible b ased on patient's age to complete this topic Rotavirus Immunization Aged Out No lo nger eligible based on patient's age to complete this topic
[2025-01-19 14:52] LABS: Hematocrit 42.6 % (37.0-47.0); Hemoglobin 14.5 g/dL (12.0-15.0); Immature Granulocyte Percent A 0.4 % (0-0.5); Lymphocytes Absolute Auto 2.24 K/mm3 (0.9-3.2); Mean Corpuscular HGB Conc 34.0 g/dl (32-36); Mean Corpuscular Hemoglobin 32.4 pg (26-34); Mean Corpuscular Volume 95.3 fl (80-100); Nucleated Red Blood Cells Absolute Auto 0.000 K/mm3 (0.0-0.012); Nucleated Red Blood Cells Perc 0.0 % (0.0-0.2); Platelet Count Result 326 k/mm3 (150-375); Red Blood Count 4.47 M/mm3 (4.2-5.4); White Blood Count 8.1 K/mm3 (4.5-10.0)
== END 2025-01-19 13:13 | disposition home or self-care (01) ==
PROVIDERS: PCP Family Medicine; Visit Provider Surgery
DX: R22.30 Localized swelling, mass and lump, unspecified upper limb (principal); I73.00 Raynaud's syndrome without gangrene
CPT/HCPCS: 36415; 76882; 85025

== ENCOUNTER 2025-01-22 01:45 | Day surgery (SDC) | payer OTHER, SELFPAY ==
--- OUTSIDE RECORDS SUMMARY | 2022-12-20 04:41 | XMS_ITS | Continuity of Care Document ---
Author Organization [employer] [facility] Address [address] [place] [address] Phone Care Team Providers Care Hand Deicer Element Winder Name Role Phone Kenisha Ramsey MD Unavailable Unavailable Allergies, Adverse Reactions, Alerts Substance Reaction Status Criticality No Known Allergies Active No Inform ation Medications Medication Instructions Dosage Effective Dates (start - stop) Status Comments lisinopril 40 mg tablet take 1 tablet by oral route every day as needed 40 MG - Active amitriptyline 50 mg tablet take 1 tablet by oral route every day at bedtime as needed 50 MG - Active clonazepam 0.5 mg tablet take 1 tablet by oral route as needed for panic - Active ropinirole 0.25 mg tablet take 1 tablet by oral route as needed - Active sertraline 50 mg tablet take 1 tablet by oral route every day 50 MG - Active ibuprofen 600 mg tablet take 1 tablet by oral route as needed - Active trazodone 50 mg tablet take 1 tablet by oral route every day at bedtime as needed 50 MG - Active propranolol 60 mg tablet take 1 tablet by oral route 1 as needed - Active Vitamin D3 50 mcg (2,000 unit) capsule take 1 tablet by oral route every day 1 tablet - Active ashwagandha root extract 300 mg capsule take 1 capsule by oral route every day 1 capsule - Active CHASTITY (28) 3 mg-0.02 mg tablet take 1 tablet by oral route every day 1.00 tablet - Active Procedures Procedure Date OFFICE [id number]-[id number]-MED BODY MASS INDEX DOCD SYST BP LT 130 MM HG DIAST BP 80-89 MM HG Advance Directives Directive Yes / No Effective Date File Name No Information Encounters Encounter Description Practice Location Reason(s) For Visit Diagnoses Date Provider Providers Copied on Encounter [facility], [address], [place], [place], [address], [place] tel:[phone] [facility] No Information [address] [place], [place], [address] , [place]. tel:[phone] OFFICE [id number] P-MED [employer] [facility], [address], [place], [place], [address], [place] tel:[phone] [facility] New pt. get established visit (chief complaint)Ch ronic Conditions (chief complaint) Body mass index [BMI] 27.0-27.9, adultPersistent headachesOther fatigueUpper back pain on right sideAnxiety, generalizedNeck painChronic insomnia 3 [address] [place], [place], [address] , [place]. tel:[phone] Referring Provider: Kenisha Tierney, [address] [place], [address] . tel:[phone] Family History Family Member Type Diagnosis Age At Onset No Information Immunizations Vaccine Date Status Comments Moderna (Bivalent Booster) C OVID Vac, 50mgc/0.5 mL, 18+ years administered Source: Swapna rce Unspecified Payers Payer name Insurance type Covered alliance party ID Authoriza tion(s) AETNA PPO CI [id number] Social History Type Description Quantity Date Captured Comments Sex Female Smoking Status No Information Sexual Orientation Straight or heterosexual Gender Identity Female Chief Complaint And Reason For Visit No Information Reason For Referral Reason For Referral No Information Plan Of Treatment Date Type Action Status Goal Dietary manageme nt education, guidance, and counseling completed Referral Ordered: Physical Therapy [facility] - [place] (related to Upper back pain on right side) ordered Referral Referred To: Physical Therapy [address] [place], [phone] Ordered: Referrals: Physical Therapy. Location: [facility] Physical THerapy - [place]. Evaluation/diagnostic/treatment - Level 3 ordered Future Order: Lab Order Ferritin ([id number]), Sent on: Sent Future Order: Lab Order Comprehe nsive Metabolic (CMP) ([id number]), Sent on: Sent Future Order: Lab Order CBC AUTO DIFF ([id number]), Sent on: Sent Future Order: Lab Order Vitamin B12 ([id number]), Sent on: Sent Future Order: Lab Order Iron/TIB C Panel ([id number]), Sent on: Sent Future Order: Lab Order Vitamin D, 25-Hydroxy ([id number]), Sent on: Sent History Of Present Illness Encounter Date Complaint History Of Prese nt Illness New pt. get established visit Pt . here to get established.Has been seeing a PCP at [facility] but feels her PCP is no longer listening to her and no longer feels he could help her symptoms. See chronic conditions template. Chronic Conditions *See Chronic Conditions HPI Functional Status Date Functional Assessmen t No Information Instructions Date Instruction Additional Infor lukas Refer to PT Related to Neck pain Take the amitriptyli ne 50mg once nightly Related to Chronic insomnia Check labs Related to Other fatigue refer to PT Related to Upper back pain on right side take propranolol 60m g tab- 1/2 tab twice daily for headache preventionTake amitriptyline 50mg at bedtime every night Try to limit use of IbuprofenStart Physical therapy at [facility] Follow up in 8 weeks Related to Persistent headaches Take the sertraline 100mg once d aily Related to Anxiety, generalized Dietary management e ducation, guidance, and counseling Related to Body mass index (BMI) 27.0-27.9, adult Assessments Type Assessment Date No Information Patient Care Teams Name Effective Dates (start - stop) Status Members No Information
--- OUTSIDE RECORDS SUMMARY | 2023-10-26 16:30 | XMS_ITS ---
Author Organization [facility] [place] ([address]) Address [address] [place] [address] Care Team Providers Care Supervisor Gelatin Plant Name Role Phone Luca Phelps Primary Care Provider Unavailab le HeatherLisbeth Unavailable [phone] ZZ-M[employer], Provider Unavailable Unavailab le [facility]IT [facility] Encounter Medications Medication SIG (Take, Route, Frequency, Duration) Notes Start Date End Date Status Adderall XR 30 MG 1 cap(s) orally once a day (in the morning); Duration: 30 day(s) Active guaiFENesin 600 MG 1 TAB(S) ORALLY BID, PRN; Duration: 5 DAY(S) *Please review and pick correct strength-formulati on from [facility] options. If intended option is not shown, [...] Encounter Location Date Provider Diagnosis LIZZETH Gibson [address] [place] [id number] 10/26/2023 Provider FabianaZ-Tobi Allergic rhinitis due to [...] * Suzanne THOMAS RDOB:[birth year] (44 yo F)Acc No.[id number]:10/26/2023 Patient: Suzanne ARMSTRONG Provider: Charbel Britton :1980 A ge:43 Y S ex:Female Date:10/26/2023 Address:[address] [place] [address] Pcp:Luca Phelps Subjective: * Chief Complaints: * 1 . [facility]. * Medical History: * Medications: [...] *Please review and pick correct strength-formulation from [facility] options. If intended option is not shown, [...] Procedure Codes: * Electronic signature of Alyson HILLIARD-Migration on 01/22/2025 at 01:47 AM CDT Sign off status: Pending * Provider: Charbel Britton Date: 10/26/2023 Generated for Luis moise/Hui/Jeronimo on: 0 01/22/2025 01:47 AM CDT
[2025-01-18 12:56] VITALS: BMI 23.4
--- NOTE | 2025-01-18 13:08 | PC.NURSE ---
Report to the Outpatient Waiting Room, entrance under the green pavilion located off [facility], at time _1000_ on date _[id number]_. Planned Procedure Time: _1200_.? Time changes happen often and if your time is changed the preop area will call you the afternoon before. - You and your visitor will be asked to self-screen and do not enter if you have any COVID symptoms. Please call surgeon if you need to reschedule. - A mask is optional within the hospital at this time. Patients may have clear liquids (water, carbonated beverages, clear teas, apple juice) until 3 hours prior to surgery with a maximum of 20 ounces. - No food from midnight until time of surgery and no smoking, or chewing tobacco (or any form of nicotine). No chewing gum, candy or mints. Take only the following medications with a SIP of water on the morning of surgery: __Amlodipine, control pill, Anxiety med if needed. Sertraline if needed.___ DO NOT STOP ANY OF YOUR OTHER PRESCRIPTION MEDICATIONS PRIOR TO SURGERY EXCEPT THE FOLLOWING Hold all vitamins and supplements for 3 days per anesthesiologist. Medications to discontinue per physician Date to take last dose Please no make-up, nail kiswahili, hairspray, perfume, deodorant, or body powder the day of surgery.? No jewelry (including any body piercings) or valuables the day of surgery, leave them at home.? Please take a shower or bath the night before, or the morning of, surgery with an antibacterial soap.? Wear comfortable, loose fitting clothing.? - Jewelry must be removed prior to entering the operating room.? Rings and piercings that are not removed may be cut off. - The hospital will not accept responsibility for valuables.? - Please leave all valuables, including medications, at home the day of surgery. If you are going home after surgery, a licensed compressed air pile driver operator must drive you home.? - NO public transportation without another adult if you receive anesthesia. - We recommend that an adult stay with you for 24 hours following discharge. - We also recommend that you do not drive, make important decision, drink alcoholic beverages, or take any drugs that were not prescribed by your health care provider for at least 24 hours after your discharge time. Follow any additional instructions given to you from your surgeon. Telephone instructions given to __Adelsoie___and asked if any additional questions and then verbalized understanding. Patient advised to call surgeon office or pre surgery nurse liaison [phone] if any additional questions.
[2025-01-22] VITALS (9 sets, daily range): BP systolic 99–129; BP diastolic 57–80; PULSE 72–92; RESP 14–16; TEMP 36.3–36.6; O2SAT 98–100; BMI 23.8
--- OUTSIDE RECORDS SUMMARY | 2025-01-22 01:47 | XMS_ITS | Encounter Summary ---
Author Organization [facility] Address [address] [place] [address] Care Team Providers Care Balance Wheel Screw Hole Tapper Name Role Phone Luca Phelps MD Primary Care Provider Encounter Details Date Type Department Care Team (Late st Contact Info) Description 11/07/2022 MyChart Message Enc [facility] - [facility] [address] [place] [address] Mychart, [facility] Provider Air Quality Message Social History Tobacco [...] documented as of this encounter Care Teams Balance Wheel Screw Hole Tapper Relationship Specialty Start Date End Date Luca Phelps MD [address] [place] [address] PCP - General FAMILY PRACTICE 05/19/18 documented as of this encounter
--- OUTSIDE RECORDS SUMMARY | 2025-01-22 01:47 | XMS_ITS | Clinical Summary ---
Author Organization [facility] Address [address] [place] [phone] Care Team Providers Care Drain Tiler Name Role Phone Luca Phelps MD Primary Care Provider [phone] Allergies Active Allergy Reactions Criticality Noted Date [...] Description 11/05/2024 11:00 AM CDT Office Visit [facility] Orthopedics and Sports Medicine [address] [place] [address] [place] [phone] Luca Matias PA Closed fracture of proximal end of right tibia with routine healing, unspecified fracture morphology, subsequent encounter (Primary Dx); Closed fracture of right ankle with routine healing, subsequent encounter; Fracture treatment convalescence or palliative care; Right ankle pain, unspecified chronicity 11/05/2024 10:46 AM CDT - 11/05/2024 11:59 PM CDT Hospital Encounter [facility] [address] [place] [address] Closed fracture of proximal end of right [...] on file Legal Sex Female 7:36 AM CONDUCTOR/BRAKEMAN Gender Identity Not on file Sexual Orientation [...] series) 2006 Covid-19 Vaccine (3 - season) 01/11/202509/2020, 09/17/2020 Influenza Vaccine (#1) 2025 , 02/14/2020, [...] by Anjel Lozada M.D. T: Report ID: [id number] Reading Location: [id number] Procedure Note Anjel Lozada MD - 11/06/2024 [...] by Anjel Lozada M.D. T: Report ID: [id number] Reading Location: [place] [address] Luca KENT IMG XR PROCEDURES Fin al [...] by Anjel Lozada M.D. T: Report ID: [id number] Reading Location: [place] [address] Procedure Note Anjel Lozada MD - 11/06/2024 [...] by Anjel Lozada M.D. T: Report ID: [id number] Reading Location: [place] [address] Luca KENT IMG XR PROCEDURES Fin al Result from Last 3 Months Insurance IDPA Care Teams Drain Tiler Relationship Specialty Start Date End Date Luca Phelps MD [address] [facility] [address] [place] [address] PCP - General Family Medicine 07/19/23
--- OUTSIDE RECORDS SUMMARY | 2025-01-22 01:47 | XMS_ITS | Clinical Summary ---
Author Organization [facility] Address [address] [place] [address] Care Team Providers Care Hadoop Java Developer Name Role Phone Luca Phelps MD Primary Care Provider Source Comments [facility],non-owned Affiliates and Associated Physician Practices is amultiple site organization consisting of ambulatory clinics and hospital sitesin [place], [place], [place] and [place]. This disclosure is being madepursuant to the Care Everywhere program and may not contain all information available regarding this patient. Last updated 18.[facility] Allergies No known active allergies Medications * [...] on file Legal Sex Female 6:17 PM ZINC PLATER Gender Identity Not on file Sexual Orientation Not on file Last Filed Vital Signs Vital Sign Reading Time Taken Comments Blood Pressure 118/70 04/30/2018 6:03 PM ZINC PLATER Pulse 81 04/30/2018 6:03 PM ZINC PLATER Temperature 37.2 C (99 F) 04/30/2018 6:03 PM ZINC PLATER Respiratory Rate 16 04/30/2018 6:03 PM ZINC PLATER Oxygen Saturation 97% 06/10/2017 4:31 PM ZINC PLATER Inhaled Oxygen Concentration - - Weight 59 kg (130 lb) 04/30/2018 6:03 PM ZINC PLATER Height 167.6 cm (5' 6) 04/30/2018 6:03 PM ZINC PLATER Body Mass Index 20.98 04/30/2018 6:03 PM ZINC PLATER Plan of Treatment Health Maintenance Due Date [...] complete this topic Insurance [employer] Care Teams Hadoop Java Developer Relationship Specialty [place] [address] [place] [address]. [address] [place] [address] PCP - General Family Medicine 06/10/17
--- OUTSIDE RECORDS SUMMARY | 2025-01-22 01:48 | XMS_ITS | Patient Health Record ---
Author Organization [facility] ([address]) Address [address] [place] [address] Care Team Providers Care Roll Form Operator Name Role Phone Luca Phelps Primary Care Provider Unavailab mayo Lisbeth Romero Unavailable [phone] Reason For Referral No Information Medications Medication [...] review and pick correct strength-formulati on from IT MOVES IT options. If intended option is not shown, [...] Status Risk Notes Problem Chronic allergic conjunctivitis (07798357) Chronic allergic conjunctivitis NOS (372.14) Active confirmed Problem Allergic rhinitis due to allergen (29517272) Allergic rhinitis due to allergen (477.8) Active confirmed Problem Shortness of breath (042521524) Shortness of breath (786.05) Active confirmed Plan Of Treatment No Information Insurance Providers Payer Name Payer Address Payer Phone Subscriber Number Group Number Insured Name Patient Relationship to Insured Coverage Start Date Coverage End Date [facility] [id number] [place] [address] [id number] Suzanne Keith Self - patient is the insured Medical (General) History Medical History History ICD Code Allergic rhinitis and conjunctivitis - p ositive ST ?2006 (Dr. Garcia) Episodic inspiratory dyspnea Sleep disorder Anxiety disorder Chronic sinusitis Tendonitis Muscle spasms Surgical History Surgery Date(Month/Year) Rhinoplasty 2006
--- OUTSIDE RECORDS SUMMARY | 2025-01-22 01:48 | XMS_ITS | Clinical Summary ---
Author Organization [facility] Address [address] [place] [id number] Care Team Providers Care Store Mgr Name Role Phone Luca Phelps MD Primary Care Provider Allergies Active Allergy Reactions Criticality Noted Date Comments Codeine Itching,Nausea Only Low 08/11/2024 Medications rOPINIRole (REQUIP) 1 MG tabletIndications:R estless leg syndrome Take 1 tablet (1 mg total) by mouth nightly. 90 tablet 3 3 Active albuterol sulfate HFA 108 (90 Base) MCG/ACT inhalerIndications: Mild intermittent asthma without complication (HHS/HCC) Inhale 2 puffs into the lungs every 6 (six) hours as needed for Wheezing. 18 g 3 3 Active lisinopril (PRINIVIL) 10 MG tabletIndications:B ilateral lower extremity edema Take 1 tablet (10 mg total) by mouth daily. 90 tablet 3 4 Active ubrogepant (UBRELVY) 50 MG tabletIndications:C hronic migraine without aura without status migrainosus, not intractable Take 1 tablet (50 mg total) by mouth 2 (two) times daily as needed for Migraine. Max of 2 tablets (100 mg) in 24 hours 18 tablet 11 4 Active hydrOXYzine (ATARAX) 25 MG tabletIndications:A nxiety Take 1 tablet (25 mg total) by mouth every 8 (eight) hours as needed for Itching. 30 tablet 3 4 Active ondansetron (ZOFRAN-ODT) 4 MG disintegrating tabletIndications:N ausea Take 1 tablet (4 mg total) by mouth every 8 (eight) hours as needed. FOR NAUSEA 18 tablet 1 4 Active amitriptyline (ELAVIL) 50 MG tabletIndications:L umbar radiculopathy,Prima ry insomnia Take 1 tablet (50 mg total) by mouth nightly at bedtime. at bedtime 90 tablet 3 4 Active traZODone (DESYREL) 100 MG tabletIndications:P rimary insomnia Take 1 tablet (100 mg total) by mouth nightly at bedtime. 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 180 tablet 3 5 Active tiZANidine (ZANAFLEX) 4 MG tabletIndications:A cute non intractable tension-type headache TAKE ONE TABLET BY MOUTH EVERY 6 HOURS NEEDED 30 tablet 2 5 Active clonazePAM (KLONOPIN) 0.5 MG tabletIndications:A nxiety Take 1 tablet (0.5 mg total) by mouth 2 (two) times daily. 20 tablet 1 5 Active lisdexamfetamine (VYVANSE) 10 MG capsuleIndications: ADHD (attention deficit hyperactivity disorder), combined type Take 1 capsule (10 mg total) by mouth every morning. 30 capsule 5 Active Active Problems Problem Noted Date Diagnosed [...] 12/03/2012 Anxiety 12/03/2012 Primary insomnia 12/03/2012 Asthma ([facility]) 11/26/2012 Impingement syndrome of shoulder 02/04/2012 Resolved [...] Problems: NO ProblemStatus: Resolve Pupillary dilation 07/17/2013 Gu splint 07/17/2013 04/16/2022 Encounter for preventive health examination 02/04/2012 01/22/2020 Encounters Date Type Department Care Team Description 01/04/2025 Scan HEALTH INFO [facility]CS Scanned, Doc [facility] 12/08/[address] [facility] [address] [place] [address] Luca Phelps MD Results 12/04/2024 7:40 AM CDT Office Visit [facility] [address], [address] [place] [address] Luca Phelps MD Lab Results (Wants to discuss lab findings from an customs compliance analyst. /); Urinary Frequency (Does not think it is a UTI. /When the urgency comes she has to go right then and there. She feels like she could urinate on herself. Happens often); Shoulder Pain (Right lipoma shoulder, getting bigger) 12/04/2024 Results Follow-Up [facility] [address], [address] [place] [address] Luca Phelps MD URINALYSIS AUTO DIP, CBC, AUTO, NO DIFF, BASIC METABOLIC PANEL 12/04/[address] [facility] [address], [address] [place] [address] Luca Phelps MD Prior Authorization 12/04/2024 Travel 11/25/2024 7:20 AM CDT Office Visit [facility] [address], [address] [place] [phone] Luca Phelps MD Follow Up (Medication [...] 6 season) 2025 10/15/2020, 09/17/2020 PHQ-2 (Physician [place]) Completed 12/04/2024 Meningococcal B Vaccine Aged Out [...] CDT) GLUCOSE 123(H) 65 - 99 mg/dL [facility] Comment: Fasting reference interval For someone without known diabetes, a glucose value between 100 and 125 mg/dL is consistent with prediabetes and should be confirmed with a follow-up test. BUN 16 7 - 25 mg/dL [facility] CREATININE S/P/B 0.83 0.50 - 0.99 mg/dL [facility] GFR ESTIMATE 89 > OR = 60 mL/min/1. 73m2 [facility] BUN CREATININE RATIO SEE NOTE: (calc) [facility] Comment: Not Reported: BUN and Creatinine are within reference range. SODIUM S/P/B 138 135 - 146 mmol/L [facility] POTASSIUM S/P/B 4.1 3.5 - 5.3 mmol/L [facility] CHLORIDE S/P/B 103 98 - 110 mmol/L [facility] CO2 25 20 - 32 mmol/L [facility] CALCIUM S/P/B 9.8 8.6 - 10.2 mg/dL [facility] 12/26/2024 1:25 PM CDT 12/26/2024 1:27 PM CDT Narrative [facility] - 12/27/2024 10:26 AM CDT FASTING:UNKNOWN FASTING: UNKNOWN Resulting Agency Comment Performing Organization Information: Site ID: [place] Name: [facility] Address: [address] [place] [address] Director: Joanna Ang MD us Luca Phelps MD LABORATORY Final R esult [facility] [address] [place] [address], XZ * CBC, AUTO, NO DIFF (12/26/2024 1:25 PM CDT) Pathologist [facility] WBC 7.3 3.8 - 10.8 Thousand/u L [facility] RBC 4.36 3.80 - 5.10 Million/uL [facility] HGB 14.4 11.7 - 15.5 g/dL [facility] HCT 43.5 35.0 - 45.0 % [facility] MCV 99.8 80.0 - 100.0 fL [facility] MCH 33.0 27.0 - 33.0 pg [facility] MCHC 33.1 32.0 - 36.0 g/dL [facility] Comment: For adults, a slight decrease in the calculated MCHC value (in the range of 30 to 32 g/dL) is most likely not clinically significant; however, it should be interpreted with caution in correlation with other red cell parameters and the patient's clinical condition. RDW 12.1 11.0 - 15.0 % [facility] PLT 292 140 - 400 Thousand/u L [facility] MPV 10.4 7.5 - 12.5 fL [facility] Member Savings Program [facility] 12/26/2024 1:25 PM CDT 12/26/2024 1:27 PM CDT Narrative [facility] - 12/27/2024 10:26 AM CDT FASTING:UNKNOWN FASTING: UNKNOWN Resulting Agency Comment Performing Organization Information: Site ID: [place] Name: [facility] Address: [address] [place] [id number] Director: Joanna Ang MD us Luca Phelps MD LABORATORY Final R esult [facility] [address] [address], * (ABNORMAL) URINALYSIS AUTO DIP (12/04/2024 8:45 AM CDT) COLOR (U) YELLOW YELLOW [facility] [place], [...] LEUKOCYTES (U) NEGATIVE NEGATIVE [facility] [place] URINE SPECIMEN OBTAINED BY CLEAN CATCH PROCEDURE / Unknown 12/04/2024 8:45 AM CDT Luca Phelps MD URINE ORDERABLES Final Result Performing Organization Address City/State/[facility] Co de Phone Number [facility] [place] [place] [address] [place] [address], from Last 3 Months Insurance AENA MARIELY Care Teams Store Mgr Relationship Specialty Start Date End Date Luca Phelps MD [address] [address] PCP - General FAMILY PRACTICE 05/19/18
--- OUTSIDE RECORDS SUMMARY | 2025-01-22 01:48 | XMS_ITS | Clinical Summary ---
Author Organization [facility] Care Team Providers Care Electrician Refinery Name Role Phone Unavailable Primary Care Provider [...]
[2025-01-22] MEDS: LACTATED RINGERS 1,000 ML 30 ML IV CONT (07:00)
--- NOTE | 2025-01-22 08:11 | WPDHPUPDATE1 ---
History and Physical Update Update Date/Time: 01/22/25 08:11 I reviewed patient's ultrasound this morning with Dr. Rincon. It had not been read as yet. It appears this is a lipoma consistent with the clinical impression. History and Physical has been reviewed, including an updated exam of the patient. There are NO changes in the patient's condition. Risks, benefits, and alternatives have been discussed and questions answered. Patient agrees to proceed with procedure.
--- NOTE | 2025-01-22 08:18 | P.PNAN_ITS ---
Anes - Initial Pre Proc Eval Procedure: Operation Date: 01/22/25 08:30 Proposed Procedures p Excision of Subcutaneous Mass Posterior Left Shoulder - Yovanny Costa MD Date/Time: 01/22/25 08:18 Surgeon: Yovanny Costa MD Pre Op Diagnosis: Subcutaneous Mass Left Shoulder Patient Data Age: 44 Gender: F Height: 1.68 m Weight: 67 kg Last Vital Signs Temp 36.6 C 01/22/25 07:56 Pulse 72 01/22/25 07:56 BP 116/66 01/22/25 07:56 Pulse Ox 99 01/22/25 07:56 O2 Del Method Room Air 01/22/25 07:56 Allergies Allergy/AdvReac Type Severity Reaction Status Date / Time No Known Allergies Allergy Verified 01/18/25 12:51 Home Medications ?Medication ?Instructions ?Recorded ?Confirmed ?Type amitriptyline 50 mg tablet 50 mg PO QHS 01/04/2501/18 History amlodipine 5 mg tablet 5 mg PO DAILY 01/04/2501/22 History clonazepam 0.5 mg tablet (Klonopin) 0.5 mg PO DAILY 01/18/25 History hydroxyzine HCl 25 mg tablet 25 mg PO TID PRN anxiety 01/04/25 01/18/25 History lisdexamfetamine 10 mg capsule 10 mg PO DAILY 01/04/25 01/18/25 History (Vyvanse) ondansetron HCl 4 mg tablet 4 mg PO Q8H 01/04/2501/18 History sertraline 100 mg tablet (Zoloft) 100 mg PO DAILY 12/1201/18/25 History tizanidine 4 mg capsule 4 mg PO TID PRN muscle spast icity 01/04/25 01/18/25 History trazodone 100 mg tablet 100 mg PO QHS PRN sleep 12/1201/18/25 History ubrogepant 50 mg tablet 50 mg PO ONCE 01/04/2501/18 History drospirenone 3 mg-ethinyl 1 tablet PO DAILY 01/18/25 0 01/18/25 History estradiol 0.02 mg tablet multivitamin (Daily Multi-Vitamin 1 tablet PO DAILY 01/18/25 History tablet) Patient hx anesthesia problems: none Family hx anesthesia problems: none Results Review: All pre-operative results and documents have been reviewed as part of the pre- operative evaluation. [facility] Past Medical History Medical History Raynaud disease Migraine Asthma Anxiety Allergies Surgical History Surgical History Hx of section 2010 Family History Family History Mother Hypertension Grandparent Diabetes mellitus Depression Cerebrovascular accident Social History Social History Years smoked: 6 Smoking status: Former smoker Tobacco type: e-cigarettes/vaping Smoking end date: 05/13/01 Alcohol intake: current Substance use: never Substance use type: does not use Living arrangements: with family Spiritual care concerns: No Anes - Eval Final PreProcedure Day of Procedure 01/22/25 08:18 Patient weight: normal Heart: regular rate and rhythm Lungs: decreased breath sounds Airway: Mallampati scale class II Neurological: alert and oriented Last oral intake: >/= 8 hours ASA classification: III Emergent: no Anesthetic plan: proceed Anesthesia type and monitoring: general ETT and standard monitoring Results Review: All pre-operative results and documents have been reviewed as part of the pre-operative evaluation. Informed Consent: The patient's anesthetic plan and its attendant risks and benefits were discussed with the patient/family/POA. Questions were solicited and answers provided to the satisfaction of the patient/family/POA.
[2025-01-22] MEDS: SCOPOLAMINE 1 MG PATCH 1 PATCH TRANSDERM (08:24)
[2025-01-22 08:25] LABS: BEDSIDEPREGUCG Negative (Negative)
[2025-01-22] MEDS: ceFAZolin 2 GM in SODIUM CHLORIDE 0.9% IV 50 ML 100 ML IVPB (08:27)
[2025-01-22] MEDS: BUPIVACAINE/EPINEPHRINE 0.5% 50 ML VIAL 30 ML INFILTRATE (08:56)
--- NOTE | 2025-01-22 09:04 | S_PTH ---
PATIENT: Suzanne Thomas LOC: [facility] U#:[id number] AGE/SX: 44/F ROOM: RE01/22/[address]: Yovanny Costa MD : 1980 BED: DIS: 01/22/2025 SPEC #: [id number] RECD: 01/22/25 11:01 STATUS: ROSA M REPaco #: [id number] SIMA: 01/22/25 09:[address]: Yovanny Costa DEPT: [facility] Surgical RECD BY: Joan Smith ENTERED: 01/22/25 11:02 SP TYPE: Surgical OTHR DR: Luca PhelpsMD Tissues: A - Mass Procedures: Hematoxylin and Eosin Stain Gross and Microscopic Level 3
--- NOTE | 2025-01-22 09:33 | W.PM.PROC2 ---
Procedure Note - Detailed Date of Procedure 01/22/25 Pre-op Diagnosis Subcutaneous Mass Right Shoulder Post-op Diagnosis Same Procedure Performed Excision 3.5 cm subcutaneous mass right shoulder with no margin Surgeon Yovanny Costa MD [facility] Anesthesia General (LMA) and Local Indications Patient has noticed a subcutaneous nodule just posterior on her right shoulder. It has been there 3 months and seems to be getting larger. It also is associated with some sharp pains intermittently. She had an ultrasound preoperatively that suggested this was a lipoma. She is taken to surgery now for excision Findings Lipoma, 3.5 cm in greatest dimension Description of Procedure Patient was checked in the preoperative holding area. She was then taken to the operating room and placed in left lateral decubitus position show the back of the right shoulder was exposed. Prep and drape was carried out. The proposed incision was marked on the skin. Local was infiltrated into the skin and the deeper subcutaneous tissues. Incision was made and dissection was carried down through the superficial subcutaneous. The nodule was still palpable but was deep to Omkar's fascia. Eventually we came to the lipoma which was pretty well demarcated. Combination of blunt and sharp dissection was used to free the subcutaneous mass from the surrounding subcutaneous tissues. It was lying on some muscular fascia at its base. It came off of this without difficulty. Once removed, the mass was measured and was 3.5 x 3 x 1 cm. The wound was made hemostatic with the cautery. 4-0 Vicryl interrupted sutures were used to close Omkar's fascia. Subcuticular interrupted 4-0 Vicryl skin stitches were placed. Finally a running 4-0 Monocryl skin suture was placed. The wound was dressed with Exofin surgical adhesive. Patient was awakened and taken to recovery in good condition. Sponge needle counts were correct x2. Estimated Blood Loss -2 Drains No Packing No Pathology Yes (Subcutaneous mass) Complications None Condition Stable Disposition PACU [facility] Billing Surgery - Charge Forward: Surgery Billing (Excision 3.5 cm subcutaneous mass right shoulder with no margin)
--- NOTE | 2025-01-22 11:06 | SUR.PHASEII ---
1105- Pt. VSS and ready for D/C. Monitoring discontinued. IV discontinued. Pt. waiting on ride.
== END 2025-01-22 12:03 | disposition home or self-care (01) ==
PROVIDERS: PCP Family Medicine; Visit Provider Surgery
PROC: (CPT 23071; principal; 2025-01-22 08:30)
DX: D17.21 Benign lipomatous neoplasm of skin and subcutaneous tissue of right arm (principal); Z87.891 Personal history of nicotine dependence
CPT/HCPCS: 23071; 88304; J0690; A9270; J1100; J1200; J2250; J2270; J2405; J2704; J7120